=== PATIENT | female | born 1975 | race Caucasian/White ===

== ENCOUNTER 2023-01-06 20:04 | Emergency (ER) | payer BC ==
[~2023-01-06] VITALS: Ht 167.6 cm; Wt 101.6 kg
[2023-01-06] MEDS ORDERED: ATOR10TA PO (21:19)
[2023-01-06] MEDS ORDERED: CITA20TA19 PO (21:19)
[2023-01-06] MEDS ORDERED: AMLO5TAB4 PO (21:19)
--- NOTE | 2023-01-06 21:20 | NUR ---
PT AMB TO 4B WITH STEADY GAIT.
--- NOTE | 2023-01-06 21:30 | NUR ---
PT AMB TO CT WITH STEADY GAIT.
[2023-01-06] MEDS ORDERED: ONDANSETRON ODT 4 MG TAB.RAPDIS SL ONE (21:45)
[2023-01-06] MEDS ORDERED: HYDROCODONE/APAP 5-325MG TABLET PO ONE ×2 (21:45→23:15)
[2023-01-06] MEDS ORDERED: ONDANSETRON ODT 4 MG TAB.RAPDIS ONE (22:10)
[2023-01-06] MEDS ORDERED: HYDROCODONE/APAP 5-325MG TABLET ONE ×2 (22:11→23:53)
[2023-01-06] MEDS ORDERED: IOHEXOL 350 100 ML INFUS..BTL ONE (23:41)
[2023-01-06] MEDS ORDERED: IV NORMAL SALINE 250 ML IV ONE (23:41)
[2023-01-06] MEDS ORDERED: SWABABLE VALVE TRANSFER SET EA MC ONE (23:41)
--- NOTE | 2023-01-06 23:50 | NUR ---
IV PLACED ,#20 R WRIST PER MD ORDER.
--- NOTE | 2023-01-07 00:10 | NUR ---
RADIOLOGY CALLED FOR CT ANGIO.
--- NOTE | 2023-01-07 00:15 | NUR ---
PT AMB TO CT WITH GRISSOM PAIN 12/23.
--- NOTE | 2023-01-07 04:20 | NUR ---
PT A,A AND O X 4 WITH GRISSOM PAIN 2 AND NO N/V, VSS. Patient discharged to home in stable condition. Written and verbal after care instructions given. Patient verbalizes understanding of instructions. Stressed follow up or return to ER for worsening s/s.PT AMB OUT WITH STEADY GAIT WITH .
[2023-01-07] MEDS ORDERED: LORA0.5T48 PO (04:35)
[2023-01-07] MEDS ORDERED: ONDA4TAB5 PO (04:35)
[2023-01-07] MEDS ORDERED: HYDR-4209 PO (04:35)
[2023-01-07 04:42] VITALS: BP 132/92
== END 2023-01-07 04:20 | disposition home or self-care (01) ==
LOC: ER 20:06
DX: R51.9 Headache, unspecified (principal); E78.5 Hyperlipidemia, unspecified; Z79.899 Other long term (current) drug therapy
CPT/HCPCS: 99285; 70496; 70450; Q9967; A4663; Q0162